=== PATIENT | male | born 1970 | race Caucasian/White ===

== ENCOUNTER 2018-03-19 15:38 | Inpatient (IN) | payer SELFPAY ==
[~2018-03-19] VITALS: Ht 180.3 cm; Wt 111.1 kg
[2018-03-19 16:10] LABS: BASOPHILS ABSOLUTE AUTO 0.08 K/mm3 (0.00-0.23); BASOPHILS PERCENT AUTO 0 % (0-2); Hematocrit 53.2 % (37.0-53.0); Hemoglobin 17.9 g/dL (13.5-17.5); LYMPHOCYTES PERCENT AUTO 8 % (21-46); MONOCYTES ABSOLUTE AUTO 0.61 K/mm3 (0.16-1.47); MONOCYTES PERCENT AUTO 3 % (4-13); Mean Corpuscular HGB 30.7 pg (26.0-34.0); Mean Corpuscular HGB Conc 33.6 g/dL (31.5-36.5); Mean Corpuscular Volume 91 fL (80-100); Mean Platelet Volume 8.5 fL (9.1-12.4); Platelet Count 450 K/mm3 (150-400); RDW Coefficient Variation 12.6 % (11.7-14.2); RDW Standard Deviation 42.1 fL (35.1-46.3); Red Blood Cell Count 5.84 M/mm3 (4.30-5.90); White Blood Cell Count 18.39 K/mm3 (4.00-11.30)
[2018-03-19 16:21] LABS: EOSINOPHILS ABSOLUTE AUTO 0.15 K/mm3 (0.00-0.68); EOSINOPHILS PERCENT AUTO 1 % (0-6); IMMATURE GRAN ABSOLUTE AUTO 0.07 K/mm3 (0.00-0.10); IMMATURE GRAN PERCENT AUTO 0 % (0-1); NEUTROPHILS ABSOLUTE AUTO 15.98 K/mm3 (1.96-9.15); NEUTROPHILS PERCENT AUTO 87 % (41-73)
[2018-03-19 16:44] LABS: Alanine Aminotransfer (ALT/SGP 39 U/L (12-78); Albumin, Blood 3.9 g/dL (3.4-5.0); Albumin/Globulin Ratio 0.7 (0.8-1.8); Alk Phos 80 U/L (50-136); Anion Gap 13 mmol/L (6-16); Aspartate Aminotrans (AST/SGOT 18 U/L (12-37); Bilirubin, Total 0.6 mg/dL (0.1-1.0); Blood Urea Nitrogen 9 mg/dL (8-24); Bun/Creatinine Ratio 10.5 (12.0-20.0); CO2, Blood 23 mmol/L (21-32); Calcium, Blood 9.3 mg/dL (8.5-10.1); Chloride, Blood 99 mmol/L (98-108); Creatinine, Blood 0.86 mg/dL (0.60-1.20); Globulin, Blood 5.7 g/dL (2.2-4.0); Glomerular Filtration Rate >60 (60-); Glucose, Blood 185 mg/dL (70-99); Sodium, Blood 135 mmol/L (136-145); Total Protein, Blood 9.6 g/dL (6.4-8.2)
[2018-03-19 18:37] LABS: International Normalized Ratio 0.99; Prothrombin Time Results 10.5 Sec (9.7-11.5)
--- NOTE | 2018-03-19 19:44 | NUR ---
03/19/181943 Evangelina Cid PT ON SCHEDULED ANTIBIOTICS
--- NOTE | 2018-03-19 21:30 | NUR ---
RECEIVED HAND OFF FROM CEE ROBLES IN ICU USING SBAR. TRANSPORTED TO ROOM 224 VIA STRETCHER. TRANSFERED SELF TO BED WITH STANDBY ASSISTANCE, TOLERATED WELL. AAO X3, [place], FOLLOWS ALL COMMANDS. ORIENTED TO ROOM, CALL SYSTEM, AND POC, VOICES UNDERSTANDING. LYING IN HIGH FOWLERS WITH EYES OPEN. RESPIRATIONS EVEN AND UNLABORED ON O2 AT 1L/NC, ORDER NOTED TO WEAN OFF O2. LUNG SOUNDS CLEAR BILATERALLY. ABDOMEN SOFT AND NONDISTENDED. HYPOACTIVE BOWEL SOUNDS PRESENT IN ALL QUADS. PT GIVEN SIPS OF WATER AND JELLO, TOLERATED WELL. RIGHT AC 18G PIV IS PATENT, INFUSING REMAINING LR FROM OR TO GRAVITY AFTER FLUSHING WITH EASE. NS TO BE STARTED PER MD ORDERS. SCD'S TO BLE. TRANSVERSE LOW ABD INCISION WITH PREVENA IN PLACE. SUCTION LOST WHEN PT GOT INTO BED. CARTIDGE READJUSTED AND SUCTION WAS RESTORED. STATES CURRENT PAIN LEVEL AT 2/10. SO BROUGHT TO BEDSIDE WITH DAUGHTER. DEINES FURTHER NEEDS OR WANTS AT THIS TIME. ADMISSION ASSESSMENT IN PROGRESS. SAFETY MEASURES IN PLACE. WILL CONTINUE TO MONITOR.
--- NOTE | 2018-03-20 05:08 | NUR ---
LYING IN SEMI FOWLERS WITH EYES CLOSED. HAS TOLERATED PAIN WELL. TRANSVERSE ABDOMINAL WOUND WITH PREVENA WOUND VAC THAT IS PATENT. GOOD URINE PRODUCTION NOTED TO MARRERO. DENIES FURTHER NEEDS AT THIS TIME. SAFETY MEASURES IN PLACE. WILL GIVE HAND OFF TO ONCOMING SHIFT USING SBAR.
[2018-03-20 06:08] LABS: BASOPHILS ABSOLUTE AUTO 0.03 K/mm3 (0.00-0.23); BASOPHILS PERCENT AUTO 0 % (0-2); EOSINOPHILS ABSOLUTE AUTO 0.01 K/mm3 (0.00-0.68); EOSINOPHILS PERCENT AUTO 0 % (0-6); Hematocrit 44.1 % (37.0-53.0); Hemoglobin 14.9 g/dL (13.5-17.5); IMMATURE GRAN ABSOLUTE AUTO 0.07 K/mm3 (0.00-0.10); IMMATURE GRAN PERCENT AUTO 0 % (0-1); LYMPHOCYTES ABSOLUTE AUTO 1.26 K/mm3 (0.84-5.20); LYMPHOCYTES PERCENT AUTO 7 % (21-46); MONOCYTES ABSOLUTE AUTO 0.84 K/mm3 (0.16-1.47); MONOCYTES PERCENT AUTO 5 % (4-13); Mean Corpuscular HGB 31.6 pg (26.0-34.0); Mean Corpuscular HGB Conc 33.8 g/dL (31.5-36.5); Mean Platelet Volume 8.7 fL (9.1-12.4); NEUTROPHILS ABSOLUTE AUTO 16.56 K/mm3 (1.96-9.15); NEUTROPHILS PERCENT AUTO 88 % (41-73); Platelet Count 377 K/mm3 (150-400); RDW Coefficient Variation 12.9 % (11.7-14.2); RDW Standard Deviation 44.4 fL (35.1-46.3); Red Blood Cell Count 4.71 M/mm3 (4.30-5.90); White Blood Cell Count 18.77 K/mm3 (4.00-11.30)
[2018-03-20 06:13] LABS: Mean Corpuscular Volume 94 fL (80-100)
[2018-03-20 06:23] LABS: Anion Gap 8 mmol/L (6-16); Blood Urea Nitrogen 9 mg/dL (8-24); Bun/Creatinine Ratio 10.7 (12.0-20.0); CO2, Blood 24 mmol/L (21-32); Calcium, Blood 7.9 mg/dL (8.5-10.1); Chloride, Blood 107 mmol/L (98-108); Creatinine, Blood 0.84 mg/dL (0.60-1.20); Glomerular Filtration Rate >60 (60-); Glucose, Blood 126 mg/dL (70-99); Potassium, Blood 4.2 mmol/L (3.5-5.5); Sodium, Blood 139 mmol/L (136-145)
[2018-03-20] MEDS ORDERED: Percocet 10-321 EACH PO (13:12)
--- NOTE | 2018-03-20 14:40 | NUR ---
DISCHARGE SUMMARY PT A&OX4, VSS, WALKED OFF FLOOR WITH FRIEND TO GO HOME, WITH ALL PERSONAL POSSESSIONS INCLUDING DISCHARGE PACKET AND ONE 1 NARC SCRIPT. DISCHARGE INSTRUCTIONS GIVEN. PT REPORTED UNDERSTANDING THOSE INSTRUCTIONS INCLUDING FU APPT WITH SURGEON IN 1 WK TO REMOVE PREVENA AND MARY, NO LIFTING GREATER THAN 15 LBS. IV DC'D.
== END 2018-03-20 13:28 | disposition home or self-care (01) | DRG 355 ==
LOC: ER 15:38 → SURS 19:06 → ICUW 20:58 → SURS 21:25
PROVIDERS: Emergency Medicine; Physician Assistant; ADMIT Surgery
PROC: 0WUF0JZ Supplement Abdominal Wall with Synthetic Substitute, Open Approach (ICD-10-PCS; principal; 2018-03-20)
DX: K42.0 Umbilical hernia with obstruction, without gangrene (principal); F17.210 Nicotine dependence, cigarettes, uncomplicated; Z88.0 Allergy status to penicillin
CPT/HCPCS: 36415; 71045; 74177; 80048; 80053; 83690; 85025; 85610; 85730; 88302; 93005; 93010; 96361; 96374; 96375; 96376; 99285-25; C1781; J0330; J1100; J1885; J1956; J2250; J2405; J2710; J3010; J7030; Q9967